=== PATIENT | female | born 1955 | race Caucasian/White ===

== ENCOUNTER → 2021-02-01 | Outpatient (CLI) | payer MEDICARE ==
[~2021-02-01] MED LIST: BUPR150T22 PO; OXYC1TAB14 PO; POLY17PO5 PO; ZIPR60CA2 PO
== END | disposition home or self-care (01) ==
LOC: CFH 14:17
PROVIDERS: ATTEND Obstetrics & Gynecology Female Pelvic Medicine and Reconstructive Surgery
DX: E04.1 Nontoxic single thyroid nodule (principal); N63.15 Unspecified lump in the right breast, overlapping quadrants; N63.25 Unspecified lump in the left breast, overlapping quadrants; N64.89 Other specified disorders of breast
CPT/HCPCS: 76536; 76642; 77061; 77065; G0279

== ENCOUNTER 2021-02-25 14:10 | Emergency (ER) | payer MEDICAID, MEDICARE ==
[~2021-02-25] VITALS: Ht 162.6 cm; Wt 65.6 kg
--- NOTE | 2021-02-25 14:46 | NUR ---
PT RESTING IN POSITION OF COMFORT IN GURNEY, HYPOTENSIVE. IV FLUIDS INFUSING. CONTINUOUS SPO2 AND CARDIAC MONITORING IN PLACE. PT ABLE TO ASSIST WITH GETTING ON BED LUU, VOIDED URINE WITHOUT DIFFICULTY. PT READING TABLET AT THIS TIME, DENIES NEEDS OR ANY DISTRESS. AWAITING EVAL BY EDMD.
--- NOTE | 2021-02-25 15:23 | NUR ---
REPORT TO ANITA FERRARO.
[2021-02-25 15:24] LABS: LYMPHOCYTES % (AUTO) 11 % (22-44); MEAN CORPUSCULAR HEMOGLOBIN 32.3 pg (27.0-34.8); MEAN CORPUSCULAR HGB CONC 33.7 g/dL (32.4-35.8); MEAN PLATELET VOLUME 7.4 fL (7.4-10.4); NEUTROPHILS % (AUTO) 84 % (42-75); PLATELET COUNT 251 x10^3/uL (130-400); RED BLOOD COUNT 4.87 x10^6/uL (3.82-5.3); RED CELL DISTRIBUTION WIDTH 13.3 % (9.6-15.2)
[2021-02-25 15:25] LABS: BASOPHILS % (AUTO) 0 % (0-1); EOSINOPHILS % (AUTO) 0 % (1-7); MONOCYTES % (AUTO) 4 % (2-9)
[2021-02-25] MEDS ORDERED: SODIUM CHLORIDE 0.9% 1,000ML IVBOLUS ONE ×2 (15:30)
[2021-02-25] MEDS ORDERED: SODIUM CHLORIDE FLUSH 10ML SYR IVF ONE (15:30)
[2021-02-25 15:34] LABS: ALBUMIN 3.1 g/dL (3.4-5.0); ANION GAP 9 mmol/L (5-15); CALCIUM 8.1 mg/dL (8.5-10.1); CHLORIDE 111 mmol/L (98-107)
[2021-02-25] MEDS ORDERED: ONDANSETRON 2MG/ML, 2ML IVPush ONE ×2 (16:00→17:00)
--- NOTE | 2021-02-25 16:27 | NUR ---
PT FOUND WANDERING IN HALLWAY, CLOTHS ON, STEADY GAIT. THIS RN ASKED PT IF SHE WAS PLANNING TO LEAVE AMA AND PT STATED, "NO I NEEDED TO USE THE RESTROOM AND NO ONE CAME." PT REMOVED OWN IV, TOP INTACT. PT HELPED BACK INTO BED. PRIMARY RN AT BREAK, BEING RELIEVED BY RN DANETTE. DANETTE RN MADE AWARE. DR. CHENG MADE AWARE.
[2021-02-25 16:36] VITALS: BP 103/50
--- NOTE | 2021-02-25 16:38 | NUR ---
2 warm blankets given, vitals done, MD notified. PT would like to go home.
[2021-02-25] MEDS ORDERED: FAMOTIDINE 20 MG/2 ML IVPush ONE (17:00)
--- NOTE | 2021-02-25 17:20 | NUR ---
WENT IN TO MEDCIATE PT AND PT WAS GONE. PT IV WAS OUT, TIP INTACT ON THE BED. MACHINIST 2ND SHIFT ADVISED. D/C PAPERWORK LEFT IN MACHINIST 2ND SHIFT POSSESSION.
[2021-02-25] MEDS ORDERED: FAMOTIDINE 20 MG/2 ML ONE (17:22)
[2021-02-25] MEDS ORDERED: ONDANSETRON 2MG/ML, 2ML ONE (17:22)
== END 2021-02-25 17:37 | disposition home or self-care (01) ==
LOC: ED 15:00
DX: R55 Syncope and collapse (principal); R00.2 Palpitations; R11.0 Nausea; R00.1 Bradycardia, unspecified
CPT/HCPCS: 36415; 80048; 82040; 85025; 96360; 99283; J7030

== ENCOUNTER → 2021-02-25 | Outpatient (CLI) | payer MEDICARE, MEDICAID | END | disposition home or self-care (01) | LOC: RAD 12:33 | PROVIDERS: ATTEND Obstetrics & Gynecology Female Pelvic Medicine and Reconstructive Surgery | DX: E04.1 Nontoxic single thyroid nodule (principal); C73 Malignant neoplasm of thyroid gland | CPT/HCPCS: 10005; 88173 ==

== ENCOUNTER → 2021-03-17 | Outpatient (CLI) | payer MEDICARE, MEDICAID ==
[~2021-03-17] MED LIST changes: +GADOTERATE 7.5 MMOL/15 ML VIAL ONE
== END | disposition home or self-care (01) ==
LOC: CFH 07:19
PROVIDERS: ATTEND Obstetrics & Gynecology Female Pelvic Medicine and Reconstructive Surgery
DX: N63.24 Unspecified lump in the left breast, lower inner quadrant (principal)
CPT/HCPCS: 77049; A9575; C8937; C8908

== ENCOUNTER 2021-03-29 13:43 | Outpatient (CLI) | payer MEDICARE, MEDICAID ==
[~2021-03-29 13:43] MED LIST changes: -GADOTERATE 7.5 MMOL/15 ML VIAL ONE
[2021-03-29] MEDS ORDERED: MULT-658 PO (14:16)
[2021-03-29] MEDS ORDERED: CHOL10003 PO (14:16)
[2021-03-29] MEDS ORDERED: CALC1CAP8 PO (14:16)
[2021-03-29] MEDS ORDERED: LISI-167 PO (14:16)
[2021-03-29 15:45] LABS: ANION GAP 6 mmol/L (5-15); CALCIUM 10.1 mg/dL (8.5-10.1); CHLORIDE 107 mmol/L (98-107)
[2021-03-29 15:46] LABS: ALANINE AMINOTRANSFERASE 28 U/L (12-78); ALBUMIN 3.5 g/dL (3.4-5.0); ALKALINE PHOSPHATASE 83 U/L (45-117); BILIRUBIN,TOTAL 0.4 mg/dL (0.2-1.0); CREATININE 0.61 mg/dL (0.55-1.02); TOTAL PROTEIN 7.4 g/dL (6.4-8.2)
== END 2021-03-29 23:59 | disposition home or self-care (01) ==
LOC: STAR 13:43
PROVIDERS: ATTEND Surgery
DX: Z01.818 Encounter for other preprocedural examination (principal); E07.89 Other specified disorders of thyroid
CPT/HCPCS: 36415; 80053; 93005

== ENCOUNTER 2021-04-04 06:57 | Day surgery (SDC) | payer MEDICARE, MEDICAID ==
[~2021-04-04] VITALS: Ht 162.6 cm; Wt 57.3 kg
[~2021-04-04 06:57] MED LIST changes: +CALC1CAP8 PO; +CHOL10003 PO; +LISI-167 PO; +MULT-658 PO; +OXYC1TAB12 PO; -OXYC1TAB14 PO
[2021-04-04 07:40] VITALS: BP 122/85
[2021-04-04 07:50] LABS: AMPHETAMINE SCREEN, URINE Negative (Negative); BARBITURATE SCREEN, URINE Negative (Negative); BENZODIAZEPINE SCREEN, URINE Negative (Negative); CANNABINOID SCREEN, URINE Negative (Negative); COCAINE SCREEN, URINE Negative (Negative); METHADONE SCREEN, URINE Negative (Negative); OPIATE SCREEN, URINE Negative (Negative)
[2021-04-04] MEDS ORDERED: CHLORHEXIDINE 15 ML UDC ONE (07:50)
[2021-04-04] MEDS ORDERED: CHLORHEXIDINE 15 ML UDC PO ONE (08:00)
[2021-04-04] MEDS ORDERED: LACTATED RINGERS 1,000 ML IV SCH (08:00)
[2021-04-04] MEDS ORDERED: MIDAZOLAM 1 MG/ML, 2ML ONE (10:05)
[2021-04-04] MEDS ORDERED: FENTANYL PF 250 MCG/5ML ONE (10:06)
[2021-04-04] MEDS ORDERED: SUCCINYLCHOLINE 20 MG/ML, 10ML ONE (10:08)
[2021-04-04] MEDS ORDERED: GLYCOPYRROLATE 0.2MG/1ML, 5ML ONE (10:08)
[2021-04-04] MEDS ORDERED: CEFAZOLIN 1,000 MG ONE (10:08)
[2021-04-04] MEDS ORDERED: NEOSTIGMINE 1 MG/ML, 10ML ONE (10:08)
[2021-04-04] MEDS ORDERED: ROCURONIUM 10MG/ML,5ML ONE (10:08)
[2021-04-04] MEDS ORDERED: ONDANSETRON 2MG/ML, 2ML ONE (10:08)
[2021-04-04] MEDS ORDERED: PROPOFOL 10 MG/ML, 20ML ONE (10:08)
[2021-04-04] MEDS ORDERED: BUPIVACAINE/PF 0.25% ONE (10:32)
[2021-04-04] MEDS ORDERED: EPINEPHRINE 1 MG/ML, 1ML ONE (10:32)
[2021-04-04] MEDS ORDERED: DEXAMETHASONE 4 MG/ML, 1ML ONE (10:50)
[2021-04-04] MEDS ORDERED: hydrALAzine 20 MG/ML, 1ML IV PRN (11:00)
[2021-04-04] MEDS ORDERED: HYDROmorphone 1 MG/ML, 1ML INJ IVPush PRN (11:00)
[2021-04-04] MEDS ORDERED: MEPERIDINE/PF 25MG/0.5ML IVPush PRN (11:00)
[2021-04-04] MEDS ORDERED: morphine SULFATE 10 MG/ML, 1ML IVPush PRN (11:00)
[2021-04-04] MEDS ORDERED: OXYcodone 5 MG/5 ML ORAL.SOL UDC PO PRN (11:00)
[2021-04-04] MEDS ORDERED: ACETAMINOPHEN 325 MG TABLET PO PRN (11:00)
[2021-04-04] MEDS ORDERED: FENTANYL PF 100 MCG/2ML IV PRN (11:00)
[2021-04-04] MEDS ORDERED: HALOPERIDOL 5 MG/ML IV PRN (11:00)
[2021-04-04] MEDS ORDERED: LABETALOL 5MG/ML, 20ML IV PRN (11:00)
[2021-04-04] MEDS ORDERED: PROMETHAZINE 25 MG/ML, 1ML IVPush PRN (11:00)
[2021-04-04] MEDS ORDERED: OXYcodone 5 MG/5 ML ORAL.SOL UDC ONE (11:54)
[2021-04-04] MEDS ORDERED: ACETAMINOPHEN 650 MG/20.3 ML UDC ONE (11:54)
[2021-04-04] MEDS ORDERED: HYDR-2214 PO (11:54)
[2021-04-04] MEDS ORDERED: FENTANYL PF 100 MCG/2ML ONE (11:54)
== END 2021-04-04 13:33 | disposition home or self-care (01) ==
LOC: OUT 06:57
PROVIDERS: ATTEND Surgery
DX: C73 Malignant neoplasm of thyroid gland (principal); I10 Essential (primary) hypertension; F31.9 Bipolar disorder, unspecified; Z79.1 Long term (current) use of non-steroidal anti-inflammatories (NSAID); Z79.899 Other long term (current) drug therapy; Z88.8 Allergy status to other drugs, medicaments and biological substances; Z90.49 Acquired absence of other specified parts of digestive tract; Z98.890 Other specified postprocedural states
CPT/HCPCS: 60220; 80307; 88307; J0330; J0690; J1100; J2250; J2405; J2704; J2710; J3010; J7120; 88311; J0171

== ENCOUNTER 2021-04-07 07:02 | Outpatient (CLI) | payer MEDICARE, MEDICAID ==
[~2021-04-07 07:02] MED LIST changes: +HYDR-2214 PO
[2021-04-07] MEDS ORDERED: SODIUM BICARBONATE 4.2%, 5ML ONE (08:00)
[2021-04-07] MEDS ORDERED: LIDOCAINE 1%, 20ML ONE (08:00)
[2021-04-07] MEDS ORDERED: LIDOCAINE 1%-EPI 1:100K, 20ML ONE (08:00)
== END 2021-04-07 23:59 | disposition home or self-care (01) ==
LOC: CFH 07:02
PROVIDERS: ATTEND Obstetrics & Gynecology Female Pelvic Medicine and Reconstructive Surgery
DX: N63.25 Unspecified lump in the left breast, overlapping quadrants (principal); C50.812 Malignant neoplasm of overlapping sites of left female breast; Z17.0 Estrogen receptor positive status [ER+]
CPT/HCPCS: 19083; 19084; 76642; 88305; 88341; 88342; 88360; 88361; 77065

== ENCOUNTER 2021-04-22 07:25 | Outpatient (CLI) | payer MEDICARE, MEDICAID | END 2021-04-22 23:59 | disposition home or self-care (01) | LOC: CFH 07:25 | PROVIDERS: ATTEND Surgery | DX: C50.312 Malignant neoplasm of lower-inner quadrant of left female breast (principal) | CPT/HCPCS: 19285 ==

== ENCOUNTER 2021-04-25 10:47 | Day surgery (SDC) | payer MEDICARE, MEDICAID ==
[~2021-04-25] VITALS: Ht 162.6 cm; Wt 57.2 kg
[2021-04-25] MEDS ORDERED: FENTANYL PF 100 MCG/2ML ONE ×3 (12:59→15:14)
[2021-04-25] MEDS ORDERED: MIDAZOLAM 1 MG/ML, 2ML ONE (12:59)
[2021-04-25] MEDS ORDERED: ISOSULFAN BLUE 10 MG/ML, 5ML IV ONE (13:27)
[2021-04-25] MEDS ORDERED: EPINEPHRINE 1 MG/ML, 1ML ONE (13:27)
[2021-04-25] MEDS ORDERED: BUPIVACAINE/PF 0.5% ONE (13:27)
[2021-04-25] MEDS ORDERED: hydrALAzine 20 MG/ML, 1ML IV PRN (13:30)
[2021-04-25] MEDS ORDERED: HYDROmorphone 1 MG/ML, 1ML INJ IVPush PRN (13:30)
[2021-04-25] MEDS ORDERED: METOCLOPRAMIDE 5 MG/ML, 2ML IVPush PRN (13:30)
[2021-04-25] MEDS ORDERED: ACETAMINOPHEN 325 MG TABLET PO PRN (13:30)
[2021-04-25] MEDS ORDERED: DIAZEPAM 5 MG/ML, 2ML IVPush PRN (13:30)
[2021-04-25] MEDS ORDERED: FENTANYL PF 100 MCG/2ML IV PRN (13:30)
[2021-04-25] MEDS ORDERED: ONDANSETRON 2MG/ML, 2ML IVPush PRN (13:30)
[2021-04-25] MEDS ORDERED: MEPERIDINE/PF 25MG/0.5ML IVPush PRN (13:30)
[2021-04-25] MEDS ORDERED: LABETALOL 5MG/ML, 20ML IV PRN (13:30)
[2021-04-25 13:57] VITALS: BP 163/80
[2021-04-25] MEDS ORDERED: CHLORHEXIDINE 15 ML UDC ONE (13:57)
[2021-04-25] MEDS ORDERED: LACTATED RINGERS 1,000 ML IV SCH (14:00)
[2021-04-25] MEDS ORDERED: CHLORHEXIDINE 15 ML UDC PO ONE (14:00)
[2021-04-25] MEDS ORDERED: ACETAMINOPHEN 650 MG/20.3 ML UDC ONE (15:14)
[2021-04-25] MEDS ORDERED: OXYcodone 5 MG/5 ML ORAL.SOL UDC ONE (15:14)
[2021-04-25] MEDS: OXYcodone 5 MG/5 ML ORAL.SOL UDC PO PRN ×2 (15:20→16:05)
[2021-04-25] MEDS ORDERED: SODIUM BICARBONATE 4.0%, 5ML ONE (15:58)
[2021-04-25] MEDS ORDERED: LIDOCAINE 1%, 20ML ONE (15:58)
[2021-04-25] MEDS ORDERED: LIDOCAINE 1%-EPI 1:100K, 20ML ONE (15:58)
== END 2021-04-25 17:10 | disposition home or self-care (01) ==
LOC: OUT 10:47 → RAD 17:10
PROVIDERS: ATTEND Surgery
DX: C50.512 Malignant neoplasm of lower-outer quadrant of left female breast (principal); I10 Essential (primary) hypertension; F32.9 Major depressive disorder, single episode, unspecified; E89.0 Postprocedural hypothyroidism; Z17.0 Estrogen receptor positive status [ER+]; Z20.822 Contact with and (suspected) exposure to COVID-19; Z79.891 Long term (current) use of opiate analgesic; Z79.899 Other long term (current) drug therapy; Z90.49 Acquired absence of other specified parts of digestive tract
CPT/HCPCS: 19125; 19281; 19282; 38525; 38792; 76098; 87635; 88307; A9541; J0171; J2250; J3010; J7120